=== PATIENT | male | born 1990 | race African-American/Black ===

== ENCOUNTER 2018-07-31 23:18 | Emergency (ER) | payer OTHER | END 2018-08-01 04:10 | disposition home or self-care (01) | LOC: JER 23:18 ==

== ENCOUNTER 2018-08-18 20:24 | Inpatient (IN) | payer OTHER ==
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
[2018-08-18] MEDS ORDERED: morphine CARPU-JECT 4 MG/1 ML DISP.SYRIN IVPUSH ONE (22:08)
[2018-08-18] MEDS ORDERED: ONDANSETRON 4 MG/2 ML VIAL IVPUSH ONE (22:08)
[2018-08-18] MEDS ORDERED: FAMOTIDINE 20 MG/50 ML IVPB 20 MG/50 ML MG IVPB ONE ×2 (22:09→22:31)
[2018-08-18] MEDS ORDERED: morphine SULFATE 4 MG/ML VIAL ONE (22:31)
[2018-08-18] MEDS ORDERED: ONDANSETRON 4 MG/2 ML VIAL ONE (22:31)
[2018-08-18 22:58] LABS: BASO % 0.2 % (0-2.0); EOS % 0.1 % (0-4.5); HEMATOCRIT 43.1 % (35.4-49); HEMOGLOBIN 14.2 GM/dL (11.7-16.9); LYMPH % 10.8 % (8-40); MCH 30.8 pg (25.7-33.7); MCHC 32.9 g/dl (32.0-35.9); MEAN CELL VOLUME 93.6 fl (80-96); MEAN PLT VOLUME 9.4 fl (7.5-11.1); MONO % 5.4 % (3.8-10.2); NEUT % 83.5 % (42.8-82.8); PLATELET COUNT 270 K/MM3 (134-434); RDW 13.2 % (11.9-15.9); WHITE BLOOD COUNT 8.4 K/mm3 (4.0-10.0)
[2018-08-19 00:03] LABS: AMYLASE 43 U/L (25-115); LIPASE 97 U/L (73-393)
[2018-08-19 00:09] LABS: ALBUMIN 4.3 g/dl (3.4-5.0); BILIRUBIN,TOTAL 1.1 mg/dL (0.2-1); BLOOD UREA NITROGEN 16.5 mg/dL (7-18); CALCIUM 9.3 mg/dL (8.5-10.1); POTASSIUM 3.9 mmol/L (3.5-5.1); TOT PROT 7.3 g/dl (6.4-8.2)
[2018-08-19] MEDS ORDERED: LORazepam 2 MG/ML SDV VIAL ONE (03:10)
[2018-08-19] MEDS: SODIUM CHLORIDE 1,000 ML IV SCH (03:36)
[2018-08-19 04:23] LABS: ACTIVATED PTT 27.6 SECONDS (25.2-36.5)
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
[2018-08-19 04:36] LABS: INR 1.33 (0.83-1.09); PROTHROMBIN TIME (PATIENT) 15.7 SEC (9.7-13.0)
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
[2018-08-19 06:45] LABS: HEMATOCRIT 38.3 % (35.4-49); HEMOGLOBIN 12.9 GM/dL (11.7-16.9); MCH 31.1 pg (25.7-33.7); MCHC 33.7 g/dl (32.0-35.9); MEAN CELL VOLUME 92.3 fl (80-96); MEAN PLT VOLUME 8.5 fl (7.5-11.1); PLATELET COUNT 228 K/MM3 (134-434); RBC 4.15 M/mm3 (4.00-5.60); RDW 12.9 % (11.9-15.9); WHITE BLOOD COUNT 6.7 K/mm3 (4.0-10.0)
[2018-08-19 07:16] LABS: BLOOD UREA NITROGEN 15.3 mg/dL (7-18); CREATININE 1.1 mg/dL (0.55-1.3); MAGNESIUM 1.8 mg/dL (1.8-2.4); PHOSPHOROUS 3.8 mg/dL (2.5-4.9); POTASSIUM 3.6 mmol/L (3.5-5.1)
[2018-08-19] MEDS ORDERED: MORPHINE SULFATE 2 MG/ML VIAL IVPUSH PRN (08:57)
[2018-08-19] MEDS ORDERED: morphine SULFATE 4 MG/ML VIAL IVPUSH PRN (08:57)
[2018-08-19] MEDS ORDERED: ACETAMINOPHEN 1000 MG/100 ML VIAL (NON FORMULARY) IVPB PRN (08:58)
[2018-08-19] MEDS ORDERED: ONDANSETRON 4 MG/2 ML VIAL IVPUSH PRN (08:58)
--- NOTE | 2018-08-19 08:59 | PN ---
Progress Note, Physician Chief Complaint: Mr Chou says he is feeling much better today, the pain is improved after NGT placement. Denies cp, sob, n/v. - Current Medication List Current Medications: Active Medications Sodium Chloride (Normal Saline -) 1,000 mls @ 125 mls/hr IV ASDIR SARA Last Admin: 08/19/18 03:36 Dose: 125 mls/hr - Objective Vital Signs: Vital Signs Temperature 36.6 C 08/18/18 20:30 Pulse Rate 67 08/19/18 06:40 Respiratory Rate 18 08/19/18 06:40 Blood Pressure 118/57 L 08/19/18 06:40 O2 Sat by Pulse Oximetry (%) 98 08/19/18 06:40 Constitutional: Yes: Well Nourished, No Distress, Calm Cardiovascular: Yes: Regular Rate and Rhythm. No: Gallop, Murmur, Rub Respiratory: Yes: Regular, CTA Bilaterally. No: Rales, Rhonchi, Wheezes Gastrointestinal: Yes: Soft, Hypoactive Bowel Sounds, Tenderness. No: Distention Extremities: Yes: WNL Edema: No Labs: CBC, BMP 08/19/18 06:34 08/19/18 06:34 INR, PTT INR 1.33 (0.83-1.09) H 08/19/18 03:38 Problem List - Problems (1) Small bowel obstruction Assessment/Plan: -improved with NGT placement -surgery consulted and awaiting recommendations -continue npo -continue IVF -continue pain control Code(s): K56.609 - UNSP INTESTNL OBST, UNSP TO PARTIAL VERSUS COMPLETE OBST
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
[2018-08-19 14:24] LABS: PH,URINE 5.5 (5.0-8.0); URINE APPEARANCE CLEAR; URINE BILIRUBIN NEGATIVE (NEGATIVE); URINE COLOR YELLOW; URINE GLUCOSE (UA) NEGATIVE (NEGATIVE); URINE KETONE 15 mg/dl (NEGATIVE)
[2018-08-19 14:25] LABS: URINE LEUK ESTERASE NEGATIVE (NEGATIVE); URINE NITRITE NEGATIVE (NEGATIVE); URINE PROTEIN TRACE (NEGATIVE)
[2018-08-19 15:59] VITALS: BMI 23.3
--- NOTE | 2018-08-19 17:00 | EKG ---
Test Reason : Blood Pressure : / mmHG Vent. Rate : 057 BPM Atrial Rate : 057 BPM P-R Int : 160 ms QRS Dur : 098 ms QT Int : 416 ms P-R-T Axes : 049 010 021 degrees QTc Int : 404 ms SINUS BRADYCARDIA OTHERWISE NORMAL ECG NO PREVIOUS ECGS AVAILABLE Confirmed by MD FRANKIE, STAN ([id number]) on 08/19/2018 4:59:51 PM Referred By: Confirmed By:STAN DAVID MD
[2018-08-20 07:08] LABS: BASO % 0.7 % (0-2.0); EOS % 1.7 % (0-4.5); HEMATOCRIT 36.1 % (35.4-49); LYMPH % 32.9 % (8-40); MCHC 33.3 g/dl (32.0-35.9); MEAN CELL VOLUME 93.2 fl (80-96); MEAN PLT VOLUME 8.9 fl (7.5-11.1); MONO % 11.8 % (3.8-10.2); NEUT % 52.9 % (42.8-82.8); PLATELET COUNT 201 K/MM3 (134-434); RBC 3.87 M/mm3 (4.00-5.60); WHITE BLOOD COUNT 5.5 K/mm3 (4.0-10.0)
[2018-08-20 07:32] LABS: BLOOD UREA NITROGEN 24.6 mg/dL (7-18); CALCIUM 8.6 mg/dL (8.5-10.1); CREATININE 1.1 mg/dL (0.55-1.3); MAGNESIUM 1.9 mg/dL (1.8-2.4); PHOSPHOROUS 3.5 mg/dL (2.5-4.9); POTASSIUM 3.4 mmol/L (3.5-5.1)
--- NOTE | 2018-08-20 10:56 | PN ---
Progress Note (short form) - Note Progress Note: Attending Surgeon No c/o ;passed flatus and ? BM ? VSS AF abdo-soft; flat and non tympanitic or tender AXR's- no obstruction NGT-400 IMP: improvimg PLAN: D/C NGT and start clear liquid diet Ignacio Joe MD FACS
--- NOTE | 2018-08-20 12:43 | PN ---
Progress Note, Physician Chief Complaint: Mr Chou says the pain is gone. He is up walking without problems. No cp, sob , n/v. NGT removed, +flatus, -bm, tolerating liquid diet - Current Medication List Current Medications: Active Medications Acetaminophen (Ofirmev Injection -) 1,000 mg IVPB Q6H PRN PRN Reason: PAIN LEVEL 1 - 3 Sodium Chloride (Normal Saline -) 1,000 mls @ 125 mls/hr IV ASDIR SARA Last Admin: 08/19/18 03:36 Dose: 125 mls/hr Morphine Sulfate (Morphine Sulfate) 2 mg IVPUSH Q4H PRN PRN Reason: PAIN LEVEL 4 - 6 Last Admin: 08/19/18 22:04 Dose: 2 mg Morphine Sulfate (Morphine Sulfate) 4 mg IVPUSH Q4H PRN PRN Reason: PAIN LEVEL 7 - 10 Ondansetron HCl (Zofran Injection) 4 mg IVPUSH Q6H PRN PRN Reason: NAUSEA Last Admin: 08/19/18 18:48 Dose: 4 mg - Objective Vital Signs: Vital Signs Temperature 37.1 C 08/20/18 06:18 Pulse Rate 58 L 08/20/18 06:18 Respiratory Rate 20 08/20/18 06:18 Blood Pressure 128/68 08/20/18 06:18 O2 Sat by Pulse Oximetry (%) 96 08/19/18 21:00 Constitutional: Yes: Well Nourished, No Distress, Calm Cardiovascular: Yes: Regular Rate and Rhythm. No: Gallop, Murmur, Rub Respiratory: Yes: Regular, CTA Bilaterally. No: Rales, Rhonchi, Wheezes Gastrointestinal: Yes: Soft, Hypoactive Bowel Sounds (but present). No: Distention, Tenderness Extremities: Yes: WNL Edema: No Labs: CBC, BMP 08/20/18 06:10 08/20/18 06:17 INR, PTT INR 1.33 (0.83-1.09) H 08/19/18 03:38 Problem List - Problems (1) Small bowel obstruction Assessment/Plan: -improving -NGT removed -ambulating in hallway -clear liquid, advance diet per surgery Code(s): K56.609 - UNSP INTESTNL OBST, UNSP TO PARTIAL VERSUS COMPLETE OBST
[2018-08-20 18:50] VITALS: TEMP 98.4
[2018-08-21] MEDS: SODIUM CHLORIDE 1,000 ML IV SCH (00:58)
[2018-08-21 06:10] VITALS: BP 128/68; PULSE 59
[2018-08-21 07:52] LABS: BASO % 0.6 % (0-2.0); HEMATOCRIT 33.5 % (35.4-49); HEMOGLOBIN 11.4 GM/dL (11.7-16.9); LYMPH % 30.8 % (8-40); MCH 31.2 pg (25.7-33.7); MEAN CELL VOLUME 91.9 fl (80-96); MEAN PLT VOLUME 8.7 fl (7.5-11.1); MONO % 11.3 % (3.8-10.2); NEUT % 54.3 % (42.8-82.8); PLATELET COUNT 195 K/MM3 (134-434); RBC 3.65 M/mm3 (4.00-5.60); RDW 12.9 % (11.9-15.9); WHITE BLOOD COUNT 4.8 K/mm3 (4.0-10.0)
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
[2018-08-21 08:05] LABS: BLOOD UREA NITROGEN 12.3 mg/dL (7-18); CALCIUM 8.4 mg/dL (8.5-10.1); CREATININE 0.9 mg/dL (0.55-1.3); MAGNESIUM 1.8 mg/dL (1.8-2.4); POTASSIUM 3.4 mmol/L (3.5-5.1)
--- NOTE | 2018-08-21 13:17 | DS ---
Physical Examination Vital Signs: Vital Signs Temperature 36.9 C 08/21/18 06:08 Pulse Rate 59 L 08/21/18 06:08 Respiratory Rate 20 08/21/18 06:08 Blood Pressure 128/68 08/21/18 06:08 O2 Sat by Pulse Oximetry (%) 99 08/21/18 09:00 Constitutional: Yes: Well Nourished, No Distress, Calm Cardiovascular: Yes: Regular Rate and Rhythm. No: Gallop, Murmur, Rub Respiratory: Yes: Regular, CTA Bilaterally. No: Rales, Rhonchi, Wheezes Gastrointestinal: Yes: Normal Bowel Sounds, Soft. No: Distention, Tenderness Extremities: Yes: WNL Edema: No Labs: CBC, BMP 08/21/18 06:25 08/21/18 06:25 Discharge Summary Reason For Visit: SMALL BOWEL OBSTRUCTION Current Active Problems Small bowel obstruction (Acute) Hospital Course: Mr Chou is a pleasant 28 year old male who comes in with SBO. He had an NGT placed in the ED and admitted to med/surg. he improved with NGT to LIWS, and was seen by surgery. Since he improved so rapidly with conservative management surgery was not indicated. He successfully had his diet advanced, he is tolerating a regular diet and having bowel movements. He is safe for discharge home today. Condition: Good - Instructions Diet, Activity, Other Instructions: resume previous diet and activity. Referrals: Ignacio Joe MD [Staff Physician] - Disposition: HOME - Home Medications Comprehensive Discharge Medication List: Ambulatory Orders NK [No Known Home Medication] 08/01/18
== END 2018-08-21 14:36 | disposition home or self-care (01) | DRG 247 ==
LOC: JERFT 20:24 → JERBED 08-19 03:00 → J8W 08-19 14:22
PROVIDERS: ADMIT Internal Medicine; ATTEND Internal Medicine
PROC: 0D9670Z Drainage of Stomach with Drainage Device, Via Natural or Artificial Opening (ICD-10-PCS; principal; 2018-08-19)
DX: K56.609 Unspecified intestinal obstruction, unspecified as to partial versus complete obstruction (principal); R10.32 Left lower quadrant pain
CPT/HCPCS: 36415; 71045-TC-FY; 74019-TC-FY; 74177-TC; 80048; 80053; 81003; 82150; 83605; 83690; 83735; 84100; 85025; 85027; 85610; 85730; 86850; 86900; 86901; 93005; 93010; 99285-25; J7030

== ENCOUNTER 2018-10-29 13:18 | Emergency (ER) | payer SELFPAY ==
[2018-10-29 13:27] VITALS: BP 121/55; PULSE 60; TEMP 98.2; BMI 25.0
--- NOTE | 2018-10-29 13:28 | PDOC ---
Rapid Medical Evaluation Chief Complaint: Pain Time Seen by Provider: 10/29/18 13:26 Medical Evaluation: Allergies Allergy/AdvReac Type Severity Reaction Status Date / Time No Known Allergies Allergy Verified 07/31/18 23:37 10/29/18 13:26 Patient had brief in-person examination in triage cc:abdominal pain since yesterday to left lower quadrant no vomiting, diarrhea or constipation HPI: alert and oriented x 3 even and unlabored breathing +bowel sounds, + tenderness to left lower quadrant orders: labs This patient will proceed to ed for further evaluation Discharge Disposition - Diagnosis Abdominal pain Qualifiers: Abdominal location: left lower quadrant Qualified Code(s): R10.32 - Left lower quadrant pain - Referrals - Patient Instructions - Post Discharge Activity
[2018-10-29] MEDS ORDERED: ACETAMINOPHEN 1000 MG/100 ML VIAL (NON FORMULARY) IVPB ONE (14:00)
[2018-10-29] MEDS ORDERED: ONDANSETRON 4 MG/2 ML VIAL IVPUSH ONE (14:00)
[2018-10-29] MEDS ORDERED: SODIUM CHLORIDE 1,000 ML IV STA (14:00)
[2018-10-29] MEDS ORDERED: ACETAMINOPHEN INJECTION 100 ML IVPB ONE (14:15)
[2018-10-29] MEDS ORDERED: ONDANSETRON 4 MG/2 ML VIAL ONE (14:15)
[2018-10-29 14:41] LABS: BASO % 0.4 % (0-2.0); HEMATOCRIT 41.1 % (35.4-49); HEMOGLOBIN 13.7 GM/dL (11.7-16.9); MCH 31.2 pg (25.7-33.7); MCHC 33.4 g/dl (32.0-35.9); MEAN CELL VOLUME 93.4 fl (80-96); MEAN PLT VOLUME 8.9 fl (7.5-11.1); MONO % 5.9 % (3.8-10.2); NEUT % 73.7 % (42.8-82.8); PLATELET COUNT 255 K/MM3 (134-434); RDW 12.9 % (11.9-15.9); WHITE BLOOD COUNT 9.5 K/mm3 (4.0-10.0)
[2018-10-29 14:49] LABS: INR 1.19 (0.83-1.09); PROTHROMBIN TIME (PATIENT) 14.1 SEC (9.7-13.0)
[2018-10-29 15:11] LABS: ALBUMIN 4.3 g/dl (3.4-5.0); BILIRUBIN,TOTAL 1.7 mg/dL (0.2-1); BLOOD UREA NITROGEN 15.8 mg/dL (7-18); CALCIUM 9.8 mg/dL (8.5-10.1); POTASSIUM 3.9 mmol/L (3.5-5.1); TOT PROT 7.5 g/dl (6.4-8.2)
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
== END 2018-10-29 18:32 | disposition home or self-care (01) ==
LOC: JER 13:18
PROC: 3E033GC Introduction of Other Therapeutic Substance into Peripheral Vein, Percutaneous Approach (ICD-10-PCS; principal; 2018-10-29)
PROC: 3E033NZ Introduction of Analgesics, Hypnotics, Sedatives into Peripheral Vein, Percutaneous Approach (ICD-10-PCS; 2018-10-29)
DX: R10.32 Left lower quadrant pain (principal)
CPT/HCPCS: 36415; 74177-TC; 80053; 85025; 85610; 86850; 86900; 86901; 99283-25; J0131; J7030